=== PATIENT | male | born 1960 | race Caucasian/White ===

== ENCOUNTER 2018-03-07 05:09 | Emergency (ER) | payer MEDICARE ==
[~2018-03-07] VITALS: Ht 177.8 cm; Wt 79.5 kg
[2018-03-07 05:12] VITALS: BP 117/60; Ht 177.8 cm; Wt 79.5 kg
[2018-03-07] MEDS ORDERED: VALIUM 2 MG TAB2 MG (05:14)
[2018-03-07] MEDS ORDERED: OXYCODONE H5 MG/5 ML (05:14)
== END 2018-03-07 07:45 | disposition home or self-care (01) ==
LOC: D.ER 05:09
DX: M25.511 Pain in right shoulder (principal); M54.2 Cervicalgia; J44.9 Chronic obstructive pulmonary disease, unspecified; B19.20 Unspecified viral hepatitis C without hepatic coma; F17.200 Nicotine dependence, unspecified, uncomplicated